=== PATIENT | female | born 1975 | race Caucasian/White ===

== ENCOUNTER 2017-04-16 20:33 | Emergency (ER) | payer MEDICAID ==
[~2017-04-16] VITALS: Ht 154.9 cm; Wt 105.0 kg
[2017-04-16 22:06] LABS: CLARITY URINE CLOUDY (CLEAR); COLOR URINE YELLOW (YELLOW); GLUCOSE URINE NEGATIVE (NEGATIVE); KETONES URINE NEGATIVE (NEGATIVE); LEUKOCYTE ESTERASE URINE NEGATIVE (NEGATIVE); NITRITE URINE NEGATIVE (NEGATIVE); OCCULT BLOOD URINE NEGATIVE (NEGATIVE); PH URINE 5.5 (4.5-8.0); PROTEIN URINE NEGATIVE (NEGATIVE); SPECIFIC GRAVITY URINE 1.021 (1.005-1.030)
[2017-04-16] MEDS ORDERED: SODIUM CHLORIDE 0.9% 1,000 ML IV ONE (23:29)
[2017-04-16] MEDS ORDERED: ONDANSETRON HCL 4MG/2ML VIAL IV STA (23:29)
[2017-04-16 23:50] LABS: CHLORIDE 109 mEq/L (98-107)
[2017-04-16 23:54] LABS: BASOPHILS % 0.4 % (0.0-2.0); EOSINOPHILS % 3.1 % (0.0-5.0); HEMATOCRIT. 37.5 % (36.0-48.0); HEMOGLOBIN. 12.7 g/dL (12.0-16.0); LYMPHOCYTES % 28.7 % (20.0-50.0); MEAN CORPUSCULAR HEMOGLOBIN 28.2 pg (28.0-32.0); MEAN CORPUSCULAR VOLUME 83.4 fL (81.0-99.0); MEAN PLATELET VOLUME 8.5 fl (7.4-10.4); MONOCYTES % 8.5 % (2.0-8.0); NEUTROPHILS % 59.3 % (40.0-76.0); PLATELET 219 x1000/uL (130-400); RED CELL DISTRIBUTION WIDTH 14.4 % (11.6-14.6)
[2017-04-17] LABS: CARBON DIOXIDE 26 mEq/L (21-32)
[2017-04-17 03:50] VITALS: BP 137/42
== END 2017-04-17 04:00 | disposition home or self-care (01) ==
LOC: ER 20:33
DX: A08.4 Viral intestinal infection, unspecified (principal); S63.615A Unspecified sprain of left ring finger, initial encounter; I10 Essential (primary) hypertension; J45.909 Unspecified asthma, uncomplicated; F17.210 Nicotine dependence, cigarettes, uncomplicated; Z98.51 Tubal ligation status; Y35.893A Legal intervention involving other specified means, suspect injured, initial encounter; Y93.89 Activity, other specified; Y92.512 Supermarket, store or market as the place of occurrence of the external cause
CPT/HCPCS: 36415; 73140; 80053; 81001; 81025; 85025; 96361; 96374; 99285; J2405; J7030; Z7610

== ENCOUNTER 2019-05-09 17:41 | Emergency (ER) | payer MEDICAID ==
[~2019-05-09] VITALS: Ht 154.9 cm; Wt 119.0 kg
[2019-05-09 23:13] LABS: HEMATOCRIT 34.8 % (36.0-48.0); HEMOGLOBIN 11.7 g/dL (12.0-16.0); MEAN CORPUSCULAR HEMOGLOBIN 26.5 pg (28.0-32.0); MEAN CORPUSCULAR VOLUME 78.7 fL (81.0-99.0); PLATELET 312 x1000/uL (130-400); RED BLOOD CELL COUNT 4.43 mill/uL (4.2-5.4); RED CELL DISTRIBUTION WIDTH 14.9 % (11.6-14.6)
[2019-05-09 23:19] LABS: CHLORIDE 107 mEq/L (98-107)
[2019-05-09 23:28] LABS: D-DIMER 0.98 mg/L FEU (<0.50); PARTIAL THROMBOPLASTIN TIME 28.6 sec (23.4-31.0); PROTHROMBIN TIME 10.6 sec (9.6-11.0)
[2019-05-10] MEDS ORDERED: IOHEXOL-350 100 ML BOTTLE ONE (02:14)
[2019-05-10] MEDS ORDERED: CEPHALEXIN 250MG CAPSULE PO ONE (02:30)
[2019-05-10 02:45] VITALS: BP 145/76
== END 2019-05-10 03:23 | disposition home or self-care (01) ==
LOC: ER 17:41
DX: L03.116 Cellulitis of left lower limb (principal); L03.115 Cellulitis of right lower limb; R60.0 Localized edema; R91.1 Solitary pulmonary nodule; E66.01 Morbid (severe) obesity due to excess calories; E11.9 Type 2 diabetes mellitus without complications; I10 Essential (primary) hypertension; Z90.49 Acquired absence of other specified parts of digestive tract; Z98.51 Tubal ligation status
CPT/HCPCS: 36415; 71275; 80053; 81025; 83880; 85027; 85379; 85610; 85730; 93005; 93970; 99284; Q9967; Z7610

== ENCOUNTER 2022-06-23 11:10 | Emergency (ER) | payer MEDICAID ==
[~2022-06-23] VITALS: Ht 154.9 cm; Wt 109.0 kg
[2022-06-23 11:14] VITALS: BP 134/92
[2022-06-23] MEDS ORDERED: LEVO-65 MT (19:43)
== END 2022-06-23 19:58 | disposition home or self-care (01) ==
LOC: ER 11:10
DX: R05.9 Cough, unspecified (principal); R06.02 Shortness of breath; R50.9 Fever, unspecified; M79.18 Myalgia, other site; I10 Essential (primary) hypertension; J45.909 Unspecified asthma, uncomplicated; E11.9 Type 2 diabetes mellitus without complications
CPT/HCPCS: 71045; 81025; 93005; 99283